=== PATIENT | female | born 1965 ===

== ENCOUNTER 2016-06-20 07:06 | Day surgery (SDC) | payer OTHER ==
[2016-06-20 07:24] VITALS: BMI 33.2
[2016-06-20] MEDS ORDERED: Lidocaine Hydrochloride 5 ML INJ ONE (08:31)
[2016-06-20] MEDS ORDERED: Propofol 10 mg/ml Inj (20 ML) ONE ×2 (08:31→08:38)
--- NOTE | 2016-06-20 08:31 | CP.SDSHP ---
Same Day Surgery H & P - History Proposed Procedure: COLONSCOPY Pre-Op Diagnosis: SEE NOTES - Previous Medical/Surgical History Cardiac: Hypertension Endocrine/Metabolic: Thyroid Disease Misc: Other Pain: 4.Moderate Pain - Allergies Allergies: Allergies No Known Allergies Allergy (Verified 06/20/16 07:24) - Physical Exam General Appearance: N Vital Signs: Vital Signs 06/20/16 07:47 Temperature 96.3 F L Pulse Rate 74 Respiratory 6 L Rate Blood Pressure 134/63 O2 Sat by Pulse 100 Oximetry Mental Status: Alert & Oriented x3 Neuro: WNL Heart: WNL Lungs: Other GI: WNL - {Optional Preform as Required} Breast: WNL Abdomen: Other Rectal: Other Integument: WNL : WNL Ortho: Other ENT: WNL - Impression Pt. Evaluated Today:Candidate for Anesthesia & Procedure: Yes - Date & Time Time: 08:31 Short Stay Discharge - Short Stay Discharge Admitting Diagnosis/Reason for Visit: RECTAL BLEEDING Disposition: HOME/ ROUTINE
[2016-06-20] MEDS ORDERED: Belladonna-Phenobarbital PO STA (08:32)
[2016-06-20 13:42] VITALS: PULSE 64; TEMP 97.6; O2SAT 99
[2016-06-20 13:45] VITALS: RESP 15
[2016-06-20 13:49] VITALS: BP 110/60
== END 2016-06-20 10:00 | disposition home or self-care (01) ==
LOC: C.ENDO 07:06
PROVIDERS: ATTEND Specialist
DX: D12.0 Benign neoplasm of cecum (principal); K57.30 Diverticulosis of large intestine without perforation or abscess without bleeding; K64.4 Residual hemorrhoidal skin tags; K64.8 Other hemorrhoids; K62.5 Hemorrhage of anus and rectum
CPT/HCPCS: 45385; 84703; 88305; J2704

== ENCOUNTER 2017-09-25 09:25 | Day surgery (SDC) | payer OTHER ==
[2017-09-25] MEDS ORDERED: Propofol 10 mg/ml Inj (20 ML) ONE ×2 (10:55→11:24)
--- NOTE | 2017-09-25 11:05 | CP.SDSHP ---
Same Day Surgery H & P - History Proposed Procedure: COLONSCOPY Pre-Op Diagnosis: SEE NOTES - Previous Medical/Surgical History Cardiac: Hypertension Endocrine/Metabolic: Thyroid Disease, Other Previous Surgical History: HX. OF COLON POLYPS - Allergies Allergies: Allergies No Known Allergies Allergy (Verified 09/25/17 09:59) - Physical Exam General Appearance: N Vital Signs: Vital Signs 09/25/17 09:45 Temperature 97.8 F Pulse Rate 61 Respiratory 19 Rate Blood Pressure 143/69 O2 Sat by Pulse 99 Oximetry Mental Status: Alert & Oriented x3 Neuro: WNL Heart: Other Lungs: WNL GI: Other - {Optional Preform as Required} Breast: WNL Abdomen: Other Rectal: Other Integument: WNL : WNL Ortho: WNL ENT: WNL - Impression Pt. Evaluated Today:Candidate for Anesthesia & Procedure: Yes - Date & Time Time: 11:05 Short Stay Discharge - Short Stay Discharge Admitting Diagnosis/Reason for Visit: PERSONAL HISTORY OF COLONIC POLYPS Disposition: HOME/ ROUTINE
[2017-09-25] MEDS ORDERED: Lactated Ringer's 1,000 ML IV ONE (11:10)
[2017-09-25 11:46] VITALS: TEMP 98
[2017-09-25] MEDS ORDERED: Belladonna-Phenobarbital PO ONE (11:50)
[2017-09-25 12:07] VITALS: O2SAT 100
[2017-09-25 12:18] VITALS: BP 118/53; PULSE 70; RESP 15
== END 2017-09-25 12:17 | disposition home or self-care (01) ==
LOC: C.ENDO 09:25
PROVIDERS: ATTEND Specialist
DX: D12.4 Benign neoplasm of descending colon (principal); K64.8 Other hemorrhoids
CPT/HCPCS: 45384; 84703; 88305; J2704; J7120